=== PATIENT | female | born 1990 | race Hispanic/Latino ===

== ENCOUNTER 2019-11-10 09:26 | Inpatient (IN) | payer OTHER ==
[2019-11-12] MEDS ORDERED: Bupivacaine/Epinephrine 0.25% 30 ML VIAL ONE (09:38)
[2019-11-12] MEDS ORDERED: Ondansetron PF 4 MG/2 ML Vial IVP PRN (21:09)
[2019-11-12] MEDS ORDERED: Ibuprofen 800 MG TAB PO PRN (21:09)
[2019-11-12] MEDS ORDERED: hydrALAZINE 20 MG/ML VIAL SLOW IVP PRN (21:09)
[2019-11-12] MEDS ORDERED: Lidocaine 1% (PF) 30 ML VIAL SC PRN (21:09)
[2019-11-12] MEDS ORDERED: Methylergonovine 0.2 MG/ML VIAL IM PRN (21:09)
[2019-11-12] MEDS ORDERED: Zolpidem Tartrate 5 MG TAB PO PRN (21:09)
[2019-11-12] MEDS ORDERED: Misoprostol 200 MCG TAB PR PRN (21:09)
[2019-11-12] MEDS ORDERED: Acetaminophen 500 MG TAB PO PRN (21:09)
[2019-11-12] MEDS ORDERED: Carboprost 250 MCG/ML AMP IM PRN (21:09)
[2019-11-12] MEDS ORDERED: Butorphanol Tartrate 1 MG/ML VIAL SLOW IVP PRN (21:09)
[2019-11-12] MEDS ORDERED: HYDROcodone/Acetaminophen 5/325 mg Tablet PO PRN (21:09)
[2019-11-12] MEDS ORDERED: Diphenoxylate HCl/Atropine Tablet PO PRN (21:09)
[2019-11-12] MEDS ORDERED: Promethazine HCl 25 MG/ML VIAL IM PRN (21:09)
[2019-11-12 21:21] VITALS: BMI 30.7
[2019-11-12] MEDS ORDERED: NS w/ Oxytocin 10 units 500 ML IV SCH (21:30)
[2019-11-12] MEDS: Lactated Ringer's 1,000 ML IV SCH (21:45)
[2019-11-12 22:01] LABS: Hemoglobin 10.8 g/dL (12.0-16.0); Mean Corpuscular HGB CONC 33.1 g/dL (32.0-36.0); Mean Corpuscular Hemoglobin 28.7 pg (27.0-31.0); Mean Corpuscular Volume 86.9 fL (78.0-98.0); Mean Platelet Volume 10.2 fL (7.4-10.4); Platelet Count 264 thou/uL (130-400); RBC Distribution Width 12.5 % (11.5-14.5); Red Blood Cell (RBC) Count 3.75 mill/uL (4.20-5.40); White Blood Cell (WBC) Count 7.4 thou/uL (4.8-10.8)
[2019-11-12] MEDS: Misoprostol 100 MCG TAB VAG SCH (22:29)
[2019-11-12 22:43] LABS: Syphilis Antibody Nonreactive (Nonreactive); Syphilis Antibody Index 0.05 S/CO (<1.00 Non-Reactive)
[2019-11-12 23:35] LABS: HBSAg Index 0.18 S/CO (0-0.99); Hep B Surf Ag Non-Reactive S/CO (NonReactive)
[2019-11-13] MEDS: Misoprostol 100 MCG TAB VAG SCH ×3 (02:55→10:56)
[2019-11-13] MEDS: Lactated Ringer's 1,000 ML IV SCH (03:03)
[2019-11-13] MEDS ORDERED: Fentanyl 4 mcg/Bup 0.1% Cadd 100 ML ONE (03:34)
[2019-11-13] MEDS ORDERED: Acetaminophen 325 MG TAB PO PRN (04:05)
[2019-11-13] MEDS ORDERED: Promethazine HCl 25 MG/ML VIAL IM PRN (04:05)
[2019-11-13] MEDS ORDERED: Naloxone HCl 0.4 mg/ml Vial IVP PRN ×2 (04:05)
[2019-11-13] MEDS ORDERED: Ondansetron PF 4 MG/2 ML Vial IVP PRN ×2 (04:05→12:46)
[2019-11-13] MEDS ORDERED: diphenhydrAMINE 50 MG/ML VIAL IVP PRN (04:05)
[2019-11-13] MEDS ORDERED: EPHEDRINE 25 MG/5 ML SYRINGE SLOW IVP PRN (04:05)
[2019-11-13] MEDS ORDERED: Lactated Ringer's 500 ML IV PRN (04:05)
[2019-11-13] MEDS ORDERED: Fentanyl 4 mcg/Bupivacaine 0.1% Cassette 100 ML EPIDURAL SCH (04:15)
[2019-11-13] MEDS ORDERED: Communication Order-Pharmacy FS SCH (04:15)
--- NOTE | 2019-11-13 06:02 | PDOC.FPROB ---
FMR OB H&P: HPI - History of Present Illness Chief Complaint: Post-dates IOL Indentification: 29 year old at 40.2 wks History of Present Illness: 29 year old at 40.2 wks by LMP/13 wk sono presents for post-dates IOL. Uncomplicated . Denies vaginal bleeding, vaginal discharge, LOF. Endorses occasional contractions. Endorses movement. Primary Care Physician: Dr. Estrada FMR OB H&P: Current - Care : 2 Para: 1001 Gestational age: 40.2 wks Due date: 11/10/2019 Dating Criteria: LMP/13 wk sono - OB Labs Blood type: O RH: positive Antibody Screen: negative HIV: negative RPR: negative HepBsAg: negative Rubella: immune Gonorrhea: negative Chlamydia: negative 1 hour gtt: 107 GBS: negative FMR OB H&P: History - Past Medical History PMH: Denies - OB History OB History: x1 - POSTPARTUM NURSE History POSTPARTUM NURSE History: Denies history of STD's. Pap NILM 2016. - Surgical History Sx History: Denies - Social History Social History: Denies tobacco, alcohol, or drug use - Family History Family History: Family history of chromosomal abnormality on paternal side FMR OB H&P: Medications - Current Home Medications: Medication Instructions Recorded Confirmed Type [id number]/Iron Fum/Folic/Docusate 1 tablet PO DAILY 11/12/19 11/12/19 History [ 19] Allergies/Adverse Reactions: Allergies Allergy/AdvReac Type Severity Reaction Status Date / Time No Known Drug Allergies Allergy Verified 11/12/19 21:12 FMR OB H&P: ROS - Review of Systems General: denies: fever/chills, weight/appetite/sleep changes ENT: denies: nasal congestion, rhinorrhea, sore throat Cardiovascular: denies: chest pain, palpitation, edema Respiratory: denies: cough, congestion, shortness of breath Gastrointestinal: denies: nausea, vomiting, diarrhea Genitourinary (Female): reports: contractions. denies: dysuria, vaginal discharge, vaginal pain, vaginal bleeding Musculoskeletal: denies: pain, stiffness Neurologic: denies: numbness, syncope Integumentary: denies: itching, rash Hematologic/Lymphatic: denies: prolonged or excessive bleeding Psychological: denies: depression, anxiety FMR OB H&P: Vital Signs - Maternal Vital signs: Vital Signs - First Documented Temp Pulse Resp BP 99.1 F 90 18 124/71 11/12/19 21:09 11/12/19 21:09 11/12/19 21:09 11/12/19 21:09 FMR OB H&P: Physical Exam - Physical Exam General: NAD, awake, alert and oriented HEENT: MMM, grossly normal vision, grossly normal hearing Heart: pulses present, no edema General: CTAB, no respiratory distress Abdomen: soft, gravid, non-tender, bowel sound present Musculoskeletal: pulses present, FROM in all four extremities Neurological: no tremor, no focal deficit Skin: no rash, capillary refill <2 seconds Lymphatic: no unusual bruising or bleeding, no purpura FMR OB H&P: Results - Labs Lab results: Laboratory Results - last 24 hr 11/12/19 11/12/19 11/12/19 21:51 21:51 21:51 WBC RBC Hgb Hct MCV MCH MCHC RDW Plt Count MPV Syphilis IgG/IgM Ab Nonreactive Hep Bs Antigen Non-Reactive Blood Type O POSITIVE Antibody Screen NEGATIVE 11/12/19 21:51 WBC 7.4 RBC 3.75 L Hgb 10.8 L Hct 32.6 L MCV 86.9 MCH 28.7 MCHC 33.1 RDW 12.5 Plt Count 264 MPV 10.2 Syphilis IgG/IgM Ab Hep Bs Antigen Blood Type Antibody Screen FMR OB H&P: A/P - Problem List (1) Encounter for induction of labor Current Visit: Yes Status: Acute Code(s): Z34.90 - ENCNTR FOR SUPRVSN OF NORMAL , UNSP, UNSP TRIMESTER (2) Post-dates Current Visit: Yes Status: Acute Code(s): O48.0 - POST-TERM Disposition: 29 year old at 40.2 wks Post-dates IOL - SVE 3/thick/high - Uncomplicated - NST reactive, category I - Augmentation of labor - GBS negative Dispo: Admit to L&D for mIOL. GBS negative. Discussion: Date/Time: 11/13/1959 This H&P was discussed with Dr. Estrada who agrees with the above documentation and plan. Signature: Meredith Brown, DO PGY-3
[2019-11-13] MEDS: NS / Oxytocin 40 units/1000ml 1,000 ML IV PRN ×2 (08:25→10:55)
--- NOTE | 2019-11-13 09:10 | PDOC.OPDEL ---
OB Operative/Delivery Note Delivery Dr/Surgeon: Natalie Assist: n/a Pre-Delivery Diagnosis: elective induction Procedure/Post Delivery Dx: spontaneous vaginal delivery Weeks gestation: 40 Anesthesia: epidural - Findings A Sex: male - 1 min: 8 - 5 min: 9 - Additional Findings/Plan Placenta delivered: spontaneous Repaired Obstetrical Laceration: 4th degree (approx 2cm into rectal mucosa repaired with 4-0 vicryl, ext anal sphincter repaired with 2-0 vicryl in end to end fashion, second degree repaired with 2-0 vicryl in usual fashion) Estimated blood loss: 650cc Post delivery plan: routine recovery
[2019-11-13] MEDS ORDERED: CEFAZOLIN 2 GM in Premix Bag 1 BAG IVPB SCH (12:15)
[2019-11-13] MEDS ORDERED: NS / Oxytocin 40 units/1000ml 1,000 ML IV SCH (12:46)
[2019-11-13] MEDS ORDERED: Bisacodyl 10 MG SUPP PR PRN (12:46)
[2019-11-13] MEDS ORDERED: HYDROcodone/Acetaminophen 5/325 mg Tablet PO PRN ×2 (12:46)
[2019-11-13] MEDS ORDERED: hydrALAZINE 20 MG/ML VIAL SLOW IVP PRN (12:46)
[2019-11-13] MEDS ORDERED: Benzocaine-Menthol 82.5 ML CAN TOP PRN (12:46)
[2019-11-13] MEDS ORDERED: Preparation H Ointment 28 GM TUBE PR PRN (12:46)
[2019-11-13] MEDS ORDERED: diphenhydrAMINE 25 MG CAP PO PRN (12:46)
[2019-11-13] MEDS ORDERED: Lanolin Ointment 7 GM TUBE TOP PRN (12:46)
[2019-11-13] MEDS ORDERED: Witch Hazel-Glycerin 1 EACH JAR TOP SCH (14:45)
[2019-11-13] MEDS: Ibuprofen 800 MG TAB PO SCH (17:47)
[2019-11-13] MEDS: Ferrous Sulfate 325 MG TAB PO SCH (17:48)
[2019-11-13] MEDS: Milk Of Magnesia 30 ML UDCUP PO PRN (21:45)
[2019-11-13] MEDS: Docusate Calcium (SURFAK) 240 MG CAP PO SCH (21:45)
[2019-11-14] MEDS: Ibuprofen 800 MG TAB PO SCH ×5 (01:19→22:11)
[2019-11-14 05:57] LABS: Hemoglobin 9.1 g/dL (12.0-16.0); Mean Corpuscular HGB CONC 34.2 g/dL (32.0-36.0); Mean Corpuscular Hemoglobin 30.2 pg (27.0-31.0); Mean Corpuscular Volume 88.3 fL (78.0-98.0); Mean Platelet Volume 10.1 fL (7.4-10.4); Platelet Count 189 thou/uL (130-400); RBC Distribution Width 12.8 % (11.5-14.5); Red Blood Cell (RBC) Count 3.02 mill/uL (4.20-5.40); White Blood Cell (WBC) Count 9.9 thou/uL (4.8-10.8)
--- NOTE | 2019-11-14 07:40 | PRG ---
DATE OF SERVICE: 11/14/2019 TIME OF SERVICE: 0715 hours. SUBJECTIVE: The patient is day 0 to #1, status post with 4th-degree laceration. She reports good pain control. She has no complaints. She is passing gas. She has not had a bowel movement. Good urine output was noted. OBJECTIVE: VITAL SIGNS: Temperature 97.8, pulse 86, respirations 18, and blood pressure 112/69. ABDOMEN: Soft and nontender with a firm fundus. No rebound. No guarding. Perineum intact. Normal lochia. EXTREMITIES: No clubbing, cyanosis, or edema. IMPRESSION: Doing well, status post normal spontaneous vaginal delivery with 4th-degree laceration. PLAN: Routine care. Probable discharge on Friday, 11/14. Job ID: [id number]
[2019-11-14] MEDS: Prenatal Vitamin 1 TAB PO SCH (09:06)
[2019-11-14] MEDS: Docusate Calcium (SURFAK) 240 MG CAP PO SCH ×2 (09:06→22:11)
[2019-11-14] MEDS: Ferrous Sulfate 325 MG TAB PO SCH ×2 (09:07→16:27)
[2019-11-14] MEDS ORDERED: Adacel (T-DAP) 0.5 ML SYRINGE IM ONE (12:46)
[2019-11-15] MEDS: Ibuprofen 800 MG TAB PO SCH (05:48)
[2019-11-15] MEDS: Milk Of Magnesia 30 ML UDCUP PO PRN (05:52)
--- NOTE | 2019-11-15 06:36 | PDOC.PP ---
Post Progress Note Post Day #: PPD2 Subjective: Doing well. Wants to go home. PO intake tolerated: yes Flatus: yes Ambulation: yes Vital Signs (12 hours) Temp Pulse Resp BP Pulse Ox 11/14/19 20:08 98.6 F 79 16 129/71 99 Weight Weight 76.204 kg - Physical Examination General: NAD Respiratory: non-labored breathing Abdominal: no distention Neurological: no gross focal deficits Psychiatric: normal affect Result Diagrams: 11/14/19 05:47 Additional Labs: Post Labs Blood Type O POSITIVE 11/12/19 21:51 Hep Bs Antigen Non-Reactive S/CO (NonReactive) 11/12/19 21:51 - Assessment/Plan DC home. Precautions reviewed. Colace OTC with Sitz BID Told to see Dr. Estrada in 6 weeks.
[2019-11-15 07:38] VITALS: BP 125/69; TEMP 98.2
[2019-11-15] MEDS: Prenatal Vitamin 1 TAB PO SCH (09:17)
[2019-11-15] MEDS: Docusate Calcium (SURFAK) 240 MG CAP PO SCH (09:18)
[2019-11-15] MEDS: Ferrous Sulfate 325 MG TAB PO SCH (09:18)
== END 2019-11-15 09:35 | disposition home or self-care (01) | DRG 768 ==
LOC: EDSTATUS 09:26 → L&D 11-12 20:29 → 3SW 11-13 12:23
PROVIDERS: ADMIT Student in an Organized Health Care Education/Training Program; ATTEND Student in an Organized Health Care Education/Training Program
PROC: 10E0XZZ Delivery of Products of Conception, External Approach (ICD-10-PCS; principal; 2019-11-13)
PROC: 0DQP0ZZ Repair Rectum, Open Approach (ICD-10-PCS; 2019-11-13)
PROC: 3E0P7VZ Introduction of Hormone into Female Reproductive, Via Natural or Artificial Opening (ICD-10-PCS; 2019-11-13)
DX: O48.0 Post-term pregnancy (principal); Z37.0 Single live birth; O70.3 Fourth degree perineal laceration during delivery; Z3A.40 40 weeks gestation of pregnancy
CPT/HCPCS: 36415; 51702; 85027; 86780; 86850; 86900; 86901; 87340; J0595; Q0163

== ENCOUNTER 2019-11-11 04:18 | Outpatient (CLI) | payer OTHER ==
[2019-11-11 18:20] LABS: SARS-CoV-2 MS2 Positive; SARS-CoV-2 N Gene Negative; SARS-CoV-2 S Gene Negative; SARS-CoV-2 orf1ab Negative
== END 2019-11-11 04:19 | disposition home or self-care (01) ==
LOC: ERS 04:18
PROVIDERS: ATTEND Student in an Organized Health Care Education/Training Program
DX: Z01.812 Encounter for preprocedural laboratory examination (principal); Z11.59 Encounter for screening for other viral diseases
CPT/HCPCS: 87635; U0003